=== PATIENT | male | born 1995 | race Asian ===

== ENCOUNTER 2023-08-13 12:31 | Outpatient (REF) | payer MEDICAID, OTHER, SELFPAY ==
[2023-08-15 05:54] LABS: Varicella IgG Antibody <135.00 index
== END 2023-08-13 12:32 | disposition home or self-care (01) ==
LOC: HO.HHCL 12:31
PROVIDERS: Visit Provider Internal Medicine
DX: Z00.00 Encounter for general adult medical examination without abnormal findings (principal)
CPT/HCPCS: 36415; 86787

== ENCOUNTER 2023-09-27 14:35 | Outpatient (REF) | payer MEDICAID, SELFPAY ==
[2023-09-30 05:03] LABS: Absolute CD3 Count 1706 cells/uL (840-3060); Absolute CD4 Count 702 cells/uL (490-1740); Absolute CD8 Count 975 cells/uL (180-1170); Absolute Lymphocytes 2145 cells/uL (850-3900); CD4 CD8 Ratio 0.72 (0.86-5.00); Percent CD3 Cells 80 % (57-85); Percent CD4 Cells 33 % (30-61); Percent CD8 Cells 45 % (12-42)
[2023-10-01 14:44] LABS: HIV RNA PCR Qn Copies 241 Copies/mL; HIV RNA PCR Qn Log Copies 2.38 Log cps/mL
== END 2023-09-27 14:36 | disposition home or self-care (01) ==
LOC: HO.CHCLDS 14:35
PROVIDERS: Visit Provider Family Medicine
DX: B20 Human immunodeficiency virus [HIV] disease (principal)
CPT/HCPCS: 36415; 86359; 86360; 87536; 87900

== ENCOUNTER 2023-11-21 16:50 | Outpatient (REF) | payer MEDICAID, OTHER, SELFPAY ==
[2023-11-26 14:28] LABS: HIV RNA PCR Qn Copies 31 copies/mL (NOT DETECTED); HIV RNA PCR Qn Log Copies 1.49 (NOT DETECTED)
== END 2023-11-21 16:51 | disposition home or self-care (01) ==
LOC: HO.HHCL 16:50
PROVIDERS: Visit Provider Family Medicine
DX: Z21 Asymptomatic human immunodeficiency virus [HIV] infection status (principal)
CPT/HCPCS: 36415; 87536; 88112

== ENCOUNTER 2024-05-21 14:54 | Outpatient (REF) | payer MEDICAID, OTHER, SELFPAY ==
[2024-05-21 15:56] LABS: MANUAL DIFF FLAG NO
[2024-05-21 16:22] LABS: Basophils Percent Auto 0.4 % (0-2); Eosinophils Absolute Auto 0.2 X10*3/uL (0.0-0.4); Eosinophils Percent Auto 3.6 % (0-4); Hematocrit 42.6 % (42.0-52.0); Hemoglobin 14.5 g/dl (14.0-18.0); Imm Gran Abs Auto 0.02 X10*3/uL (0.00-0.03); Imm Gran Pct Auto 0.4 % (0.0-0.4); Lymphocytes Percent Auto 36.2 % (20-40); Mean Corpuscular Hemoglobin 31.2 pg (27.0-33.0); Mean Corpuscular Volume 91.6 fL (80.0-98.0); Monocytes Absolute Auto 0.5 X10*3/uL (0.1-1.2); Monocytes Percent Auto 8.5 % (2-11); Neutrophils Absolute Auto 2.8 x10*3/uL (2.0-8.3); Neutrophils Percent Auto 50.9 % (45-73); Platelet Count 267 X10*3/uL (160-400); Red Blood Count 4.65 X10*6/uL (4.60-5.80); Red Cell Distribution Width 12.3 % (11.0-16.0); White Blood Count 5.5 X10*3/uL (4.8-10.8)
[2024-05-21 16:36] LABS: Alanine Aminotransferase 27 U/L (0-40); Albumin Level 4.2 g/dL (3.5-5.0); Alkaline Phosphatase 84 U/L (39-117); Anion Gap 10 (12-20); Aspartate Amino Transferase 21 U/L (5-37); Bilirubin Direct 0.1 mg/dL (0.0-0.5); Bilirubin Total 0.3 mg/dL (0.0-1.0); Blood Urea Nitrogen 13 mg/dL (9-16); Calcium 9.4 mg/dL (8.4-10.2); Carbon Dioxide 27 mmol/L (22-29); Chloride 107 mmol/L (96-108); Cholesterol 213 mg/dL (<200); Estimated Glomerular Filt Rate > 60; Glucose Random 104 mg/dL (60-115); HDL Cholesterol 48 mg/dL (>40); LDL Cholesterol Calculated 116 mg/dL (<100); Potassium 3.7 mmol/L (3.3-5.1); Sodium 140 mmol/L (135-145); Triglycerides 246 mg/dL (<150)
[2024-05-21 17:56] LABS: Reflex LDLD? No
[2024-05-22 16:34] LABS: HIV RNA PCR Qn Copies 205 copies/mL (NOT DETECTED); HIV RNA PCR Qn Log Copies 2.31 (NOT DETECTED)
[2024-05-22 23:19] LABS: RPR Rapid Plasma Reagin REACTIVE (NON-REACTIVE)
[2024-05-24 18:13] LABS: Absolute CD3 Count 2360 cells/uL (840-3060); Absolute CD4 Count 1125 cells/uL (490-1740); Absolute CD8 Count 1181 cells/uL (180-1170); Absolute Lymphocytes 2978 cells/uL (850-3900); CD4 CD8 Ratio 0.95 (0.86-5.00); Percent CD3 Cells 79 % (57-85); Percent CD4 Cells 38 % (30-61); Percent CD8 Cells 40 % (12-42)
== END 2024-05-21 14:55 | disposition home or self-care (01) ==
LOC: HO.HHCL 14:54
PROVIDERS: Visit Provider Internal Medicine
DX: Z21 Asymptomatic human immunodeficiency virus [HIV] infection status (principal)
CPT/HCPCS: 36415; 80053; 80061; 82248; 85025; 86359; 86360; 86592; 86593; 87536

== ENCOUNTER 2024-09-24 11:55 | Outpatient (REF) | payer MEDICAID, OTHER, SELFPAY ==
[2024-09-24 13:17] LABS: Appearance Urine Clear; Color Urine Yellow; Glucose Urine UA Negative (Negative); Leukocyte Esterase Urine Negative (Negative); Nitrite Urine Negative (Negative); Specific Gravity - Urine 1.015 (1.005-1.025); Urine Blood Negative (Negative); Urine Ketones Negative (Negative); Urine Protein Negative (Neg-Trace)
[2024-09-24 13:20] LABS: Bacteria Urine None Seen (None Seen); Hyaline Casts Urine 0-2 /LPF (0-2); RBC Urine 0-2 /HPF (0-2); Squamous Epithelial Cell Urine 0-2 /HPF (0-2); WBC Urine 0-5 /HPF (0-5)
[2024-09-24 13:30] LABS: MANUAL DIFF FLAG NO
[2024-09-24 13:40] LABS: Basophils Percent Auto 0.5 % (0-2); Eosinophils Absolute Auto 0.2 X10*3/uL (0.0-0.4); Eosinophils Percent Auto 3.2 % (0-4); Hematocrit 45.2 % (42.0-52.0); Hemoglobin 15.2 g/dl (14.0-18.0); Imm Gran Abs Auto 0.02 X10*3/uL (0.00-0.03); Imm Gran Pct Auto 0.3 % (0.0-0.4); Lymphocytes Absolute Auto 2.3 X10*3/uL (1.2-4.9); Lymphocytes Percent Auto 37.5 % (20-40); Mean Corpuscular HGB Conc 33.6 g/dl (31.0-36.0); Mean Corpuscular Volume 92.1 fL (80.0-98.0); Mean Platelet Volume 9.3 fL (9.4-12.4); Monocytes Absolute Auto 0.6 X10*3/uL (0.1-1.2); Neutrophils Absolute Auto 3.1 x10*3/uL (2.0-8.3); Neutrophils Percent Auto 49.5 % (45-73); Platelet Count 328 X10*3/uL (160-400); Red Blood Count 4.91 X10*6/uL (4.60-5.80); Red Cell Distribution Width 13.2 % (11.0-16.0); White Blood Count 6.2 X10*3/uL (4.8-10.8)
[2024-09-24 14:23] LABS: Estimated Average Glucose 100 mg/dL; Hemoglobin A1C 125.6035 umol/L; Hemoglobin A1c % 5.1 % (<6.0); Total Hemoglobin (HGBA1C) 3929.6379 umol/L
[2024-09-24 16:18] LABS: Alanine Aminotransferase 28 U/L (0-40); Albumin Level 4.5 g/dL (3.5-5.0); Alkaline Phosphatase 69 U/L (39-117); Anion Gap 10 (12-20); Aspartate Amino Transferase 36 U/L (5-37); Bilirubin Total 0.6 mg/dL (0.0-1.0); Blood Urea Nitrogen 9 mg/dL (9-16); Calcium 9.4 mg/dL (8.4-10.2); Carbon Dioxide 30 mmol/L (22-29); Chloride 102 mmol/L (96-108); Estimated Glomerular Filt Rate > 60; Glucose Random 83 mg/dL (60-115); Potassium 3.7 mmol/L (3.3-5.1); Sodium 138 mmol/L (135-145); Total Protein 7.7 g/dL (6.5-8.0)
[2024-09-25 08:18] LABS: HBS Num1 394.87 mIU/mL (0-7.99); HBsAGNum1 0.26 S/CO (0.00-0.99); Hepatitis A Antibody IgG Nonreactive (Nonreactive); Hepatitis B Surface Antigen Negative (Negative); ~HepC Num1 0.09 S/CO (0.00-0.79); ~Hepatitis A Antibody IgG 0.35 S/CO (0.00-0.99); ~Hepatitis B Surface Antibody REACTIVE (Nonreactive); ~Hepatitis C Antibody Nonreactive (Nonreactive)
[2024-09-25 09:25] LABS: HBc Num2 1.33 S/CO; HBc Num3 1.33 S/CO; Hepatitis B Core Antibody Reactive (Nonreactive)
[2024-09-26 13:43] LABS: HIV RNA PCR Qn Copies 76 copies/mL (NOT DETECTED); HIV RNA PCR Qn Log Copies 1.88 (NOT DETECTED)
[2024-09-27 04:43] LABS: TS Negative Control Passed; TS Panel A 2; TS Panel B 0; TS Positive Control Passed; TSpotTB Negative (Negative)
[2024-09-28 12:43] LABS: Varicella IgG Antibody <1.00 S/CO
[2024-09-28 18:08] LABS: RPR Rapid Plasma Reagin REACTIVE (NON-REACTIVE)
== END 2024-09-24 11:56 | disposition home or self-care (01) ==
LOC: HO.HHCL 11:55
PROVIDERS: Visit Provider Internal Medicine
DX: Z21 Asymptomatic human immunodeficiency virus [HIV] infection status (principal)
CPT/HCPCS: 36415; 80053; 81001; 83036; 85025; 86481; 86592; 86593; 86704; 86706; 86708; 86735; 86762; 86765; 86787; 86803; 87340; 87536

== ENCOUNTER 2025-05-19 12:32 | Outpatient (REF) | payer BC, SELFPAY ==
[2025-05-19 16:21] LABS: MANUAL DIFF FLAG NO
[2025-05-19 16:36] LABS: Hematocrit 46.0 % (42.0-52.0); Hemoglobin 15.8 g/dl (14.0-18.0); Imm Gran Abs Auto 0.02 X10*3/uL (0.00-0.03); Imm Gran Pct Auto 0.4 % (0.0-0.4); Lymphocytes Absolute Auto 1.9 X10*3/uL (1.2-4.9); Mean Corpuscular HGB Conc 34.3 g/dl (31.0-36.0); Mean Corpuscular Hemoglobin 31.2 pg (27.0-33.0); Mean Corpuscular Volume 90.7 fL (80.0-98.0); NRBC Abs Auto 0.000 X10*3/uL (0.0-0.012); NRBC Pct Auto 0.0 /100WBC (0.0-0.2); Platelet Count 278 X10*3/uL (160-400); Red Blood Count 5.07 X10*6/uL (4.60-5.80); White Blood Count 5.4 X10*3/uL (4.8-10.8)
[2025-05-19 16:47] LABS: Alanine Aminotransferase 29 U/L (0-40); Albumin Level 4.5 g/dL (3.5-5.0); Alkaline Phosphatase 83 U/L (39-117); Anion Gap 10 (12-20); Aspartate Amino Transferase 40 U/L (5-37); Blood Urea Nitrogen 17 mg/dL (9-16); Calcium 9.7 mg/dL (8.4-10.2); Carbon Dioxide 29 mmol/L (22-29); Chloride 106 mmol/L (96-108); Estimated Glomerular Filt Rate > 60; Potassium 4.2 mmol/L (3.3-5.1); Sodium 141 mmol/L (135-145); Total Protein 7.5 g/dL (6.5-8.0)
[2025-05-20 14:28] LABS: HIV RNA PCR Qn Copies 334 copies/mL (NOT DETECTED); HIV RNA PCR Qn Log Copies 2.52 (NOT DETECTED)
[2025-05-25 14:29] LABS: Absolute CD3 Count 1623 cells/uL (840-3060); Absolute CD8 Count 846 cells/uL (180-1170); Percent CD3 Cells 80 % (57-85); Percent CD8 Cells 42 % (12-42)
== END 2025-05-19 12:33 | disposition home or self-care (01) ==
LOC: HO.HHCL 12:32
PROVIDERS: PCP Family Medicine; Visit Provider Internal Medicine
DX: Z21 Asymptomatic human immunodeficiency virus [HIV] infection status (principal)
CPT/HCPCS: 36415; 80053; 85025; 86359; 86360; 87536

== ENCOUNTER 2025-08-19 09:54 | Outpatient (REF) | payer BC, SELFPAY ==
[2025-08-19 11:04] LABS: MANUAL DIFF FLAG NO
[2025-08-19 11:42] LABS: Hematocrit 43.2 % (42.0-52.0); Hemoglobin 14.7 g/dl (14.0-18.0); Imm Gran Abs Auto 0.01 X10*3/uL (0.00-0.03); Imm Gran Pct Auto 0.3 % (0.0-0.4); Lymphocytes Absolute Auto 1.6 X10*3/uL (1.2-4.9); Mean Corpuscular HGB Conc 34.0 g/dl (31.0-36.0); Mean Corpuscular Hemoglobin 31.4 pg (27.0-33.0); Mean Corpuscular Volume 92.3 fL (80.0-98.0); NRBC Abs Auto 0.000 X10*3/uL (0.0-0.012); NRBC Pct Auto 0.0 /100WBC (0.0-0.2); Platelet Count 250 X10*3/uL (160-400); Red Blood Count 4.68 X10*6/uL (4.60-5.80); White Blood Count 4.0 X10*3/uL (4.8-10.8)
[2025-08-19 11:49] LABS: Alanine Aminotransferase 20 U/L (0-40); Albumin Level 4.7 g/dL (3.5-5.0); Alkaline Phosphatase 80 U/L (39-117); Anion Gap 9 (12-20); Aspartate Amino Transferase 26 U/L (5-37); Blood Urea Nitrogen 19 mg/dL (9-16); Calcium 9.3 mg/dL (8.4-10.2); Carbon Dioxide 28 mmol/L (22-29); Chloride 108 mmol/L (96-108); Cholesterol 242 mg/dL (<200); Estimated Glomerular Filt Rate 58; HDL Cholesterol 50 mg/dL (>40); Potassium 4.3 mmol/L (3.3-5.1); Sodium 141 mmol/L (135-145); Total Protein 7.4 g/dL (6.5-8.0); Triglycerides 114 mg/dL (<150)
[2025-08-19 12:09] LABS: HBsAGNum1 0.50 S/CO (0.00-0.99); Hepatitis B Surface Antigen Negative (Negative); ~HepC Num1 0.10 S/CO (0.00-0.79); ~Hepatitis B Surface Antibody REACTIVE (Nonreactive); ~Hepatitis C Antibody Nonreactive (Nonreactive)
[2025-08-19 13:38] LABS: Reflex LDLD? No
[2025-08-23 00:19] LABS: TS Negative Control Passed; TS Panel A 0; TS Panel B 0; TS Positive Control Passed; TSpotTB Negative (Negative)
[2025-08-23 09:23] LABS: HIV RNA PCR Qn Copies 93 copies/mL (NOT DETECTED); HIV RNA PCR Qn Log Copies 1.97 (NOT DETECTED)
[2025-08-23 19:18] LABS: Absolute CD3 Count 1244 cells/uL (840-3060); Absolute CD8 Count 675 cells/uL (180-1170); Percent CD3 Cells 82 % (57-85); Percent CD8 Cells 44 % (12-42)
[2025-08-23 23:23] LABS: Rapid Plasma Reagin Ab Titer 1:8
== END 2025-08-19 09:55 | disposition home or self-care (01) ==
LOC: HO.HHCL 09:54
PROVIDERS: PCP Family Medicine; Visit Provider Internal Medicine
DX: Z13.6 Encounter for screening for cardiovascular disorders (principal); Z11.4 Encounter for screening for human immunodeficiency virus [HIV]; Z13.1 Encounter for screening for diabetes mellitus; Z11.1 Encounter for screening for respiratory tuberculosis; Z21 Asymptomatic human immunodeficiency virus [HIV] infection status
CPT/HCPCS: 36415; 80053; 80061; 83036; 85025; 86359; 86360; 86481; 86592; 86593; 86706; 86803; 87340; 87536